=== PATIENT | male | born 1990 | race Caucasian/White ===

== ENCOUNTER 2019-09-19 06:17 | Day surgery (SDC) | payer MEDICAID, SELFPAY ==
[~2019-09-19] VITALS: Ht 180.3 cm; Wt 78.0 kg
[2019-09-19] MEDS ORDERED: ONDANSETRON HCL 4 MG/2 ML VIAL IVP PRN (07:30)
[2019-09-19] MEDS ORDERED: HYDROmorphone 1 MG INJ. 1 MG/ML AMPUL IVP PRN (07:30)
[2019-09-19] MEDS ORDERED: fentaNYL CITRATE/PF 100 MCG/2 ML AMP IVP PRN (07:30)
[2019-09-19] MEDS ORDERED: fentaNYL CITRATE/PF 100 MCG/2 ML AMP ONE (11:14)
[2019-09-19 12:09] VITALS: BP_SYST 146
[2019-09-19] MEDS ORDERED: HYDROcodone/ACETAMIN 5-325 MG TAB (NORCO/ VICODIN) PO ONE (12:45)
[2019-09-19] MEDS ORDERED: HYDROcodone/ACETAMIN 5-325 MG TAB (NORCO/ VICODIN) ONE (12:46)
== END 2019-09-19 14:50 | disposition home or self-care (01) ==
LOC: SMU 06:17 → SDS 06:17
PROVIDERS: ATTEND Otolaryngology
DX: J34.2 Deviated nasal septum (principal); J32.4 Chronic pansinusitis; K21.9 Gastro-esophageal reflux disease without esophagitis; R09.82 Postnasal drip
CPT/HCPCS: 30140; 30520; 31255; 31256; 31297; 87070; 87075; 87101; 87186; 88305; 88311; C1726; J3010; U0002

== ENCOUNTER 2019-09-24 15:48 | Day surgery (SDC) | payer MEDICAID, SELFPAY ==
[~2019-09-24] VITALS: Ht 180.3 cm; Wt 75.7 kg
[~2019-09-24 15:48] MED LIST: DEXAMETHASONE SOD PHOSPHATE 4 MG/ML VIAL IVP ONE; EPINEPHrine 1 MG/ML AMP IM ONE; LIDOCAINE/EPI 1% 1:100000 20 ML VIAL INJ ONE; LR 1,000 ML IV.SOLN IV ONE; MEPERIDINE HCL/PF 100 MG/ML AMP IM ONE; MIDAZOLAM HCL 5 MG/5 ML VIAL IVP ONE; NS IRRIG SOLN 1000 ML IR ONE; ONDANSETRON HCL 4 MG/2 ML VIAL IVP ONE; OXYMETAZOLINE HCL 0.05% NASAL SPRAY NS ONE; PROPOFOL 200MG/ 20ML VIAL (DIPRIVAN) IV ONE; SEVOFLURANE 15 MIN GAS INH ONE; SUCCINYLCHOLINE CHLORIDE 20 MG/ML(QUELICIN) IVP ONE; fentaNYL CITRATE/PF 100 MCG/2 ML AMP IVP ONE
[2019-09-24] MEDS ORDERED: LR 1,000 ML IV SCH (16:26)
[2019-09-24] MEDS ORDERED: MEPERIDINE HCL/PF 25 MG/ML DISP.SYRIN IVP PRN (16:30)
[2019-09-24] MEDS ORDERED: ONDANSETRON HCL 4 MG/2 ML VIAL IVP PRN (16:30)
[2019-09-24 17:34] LABS: BASOPHILS % (AUTO) 0.3 % (0.0-2.0); EOSINOPHILS % (AUTO) 0.2 % (0.0-4.0); HEMATOCRIT 31.6 % (36-54); HEMOGLOBIN 10.7 g/dL (14.0-18.0); LYMPHOCYTES # (AUTO) 1.1 K/uL (1.0-5.5); LYMPHOCYTES % (AUTO) 9.6 % (20.5-51.5); MEAN CORPUSCULAR HEMOGLOBIN 30 pg (27-31); MEAN CORPUSCULAR HGB CONC 34 % (32-36); MEAN CORPUSCULAR VOLUME 90 fL (79.0-98.0); MONOCYTES # (AUTO) 0.7 K/uL (0.0-1.0); MONOCYTES % (AUTO) 6.5 % (1.7-9.3); NEUTROPHILS # (AUTO) 9.1 K/uL (1.8-7.7); NEUTROPHILS % (AUTO) 83.4 % (40.0-70.0); PLATELET COUNT (AUTO) 230 K/uL (130-430); RED BLOOD CELL COUNT(AUTO) 3.53 MIL/uL (4.2-6.2); RED CELL DISTRIBUTION WIDTH 13.4 % (9.0-15.0)
[2019-09-24 17:51] LABS: CALCIUM 8.7 mg/dL (8.4-11.0); CREATININE 0.86 mg/dL (0.55-1.30); POTASSIUM 4.5 mmol/L (3.5-5.1)
[2019-09-24] MEDS: HYDROmorphone 1 MG INJ. 1 MG/ML AMPUL IVP PRN ×2 (20:18→20:28)
[2019-09-24] MEDS ORDERED: LABETALOL 100 MG/ 20ML VIAL IVP ONE ×2 (20:30→21:30)
[2019-09-24] MEDS ORDERED: HYDROmorphone 1 MG INJ. 1 MG/ML AMPUL ONE (20:31)
[2019-09-24] MEDS ORDERED: LABETALOL 100 MG/ 20ML VIAL ONE (20:45)
[2019-09-24 21:00] VITALS: BP_SYST 143
== END 2019-09-24 23:46 | disposition home or self-care (01) ==
LOC: SDS 15:48 → SMU 16:21 → SDS 23:46
PROVIDERS: ATTEND Otolaryngology
DX: R04.0 Epistaxis (principal); J95.830 Postprocedural hemorrhage of a respiratory system organ or structure following a respiratory system procedure
CPT/HCPCS: 31238; 36415; 80048; 85025; A4649; J0171; J0330; J1100; J1170; J2175; J2250; J2405; J2704; J3010; J3490; J7120

== ENCOUNTER 2019-09-25 05:46 | Emergency (ER) | payer MEDICAID ==
[~2019-09-25] VITALS: Ht 180.3 cm; Wt 75.7 kg
[2019-09-25 05:55] VITALS: BP_SYST 142
[2019-09-25] MEDS ORDERED: NACL 0.9% 1,000 ML IV ONE (06:10)
[2019-09-25 06:51] LABS: BASOPHILS % (AUTO) 0.1 % (0.0-2.0); HEMOGLOBIN 9.4 g/dL (14.0-18.0); LYMPHOCYTES # (AUTO) 1.1 K/uL (1.0-5.5); MEAN CORPUSCULAR HEMOGLOBIN 30 pg (27-31); MEAN CORPUSCULAR HGB CONC 34 % (32-36); MEAN CORPUSCULAR VOLUME 90 fL (79.0-98.0); MONOCYTES # (AUTO) 1.4 K/uL (0.0-1.0); MONOCYTES % (AUTO) 11.1 % (1.7-9.3); NEUTROPHILS % (AUTO) 79.8 % (40.0-70.0); PLATELET COUNT (AUTO) 246 K/uL (130-430); RED BLOOD CELL COUNT(AUTO) 3.12 MIL/uL (4.2-6.2); RED CELL DISTRIBUTION WIDTH 13.5 % (9.0-15.0); WHITE BLOOD COUNT (AUTO) 12.5 K/uL (4.8-10.8)
[2019-09-25 07:09] LABS: CALCIUM 8.6 mg/dL (8.4-11.0); CREATININE 0.97 mg/dL (0.55-1.30)
[2019-09-25 07:16] LABS: ALBUMIN 3.6 g/dL (3.4-4.8); TOTAL BILIRUBIN 0.3 mg/dL (0.0-1.0)
[2019-09-25 08:35] LABS: INR 1.1 (0.80-1.20); PROTHROMBIN TIME 11.1 SECS (9.5-12.5)
[2019-09-25 10:41] VITALS: BP_SYST 115
== END 2019-09-25 10:41 | disposition home or self-care (01) ==
LOC: SED 05:46
DX: D64.9 Anemia, unspecified (principal); R55 Syncope and collapse; R04.0 Epistaxis
CPT/HCPCS: 36415; 80053; 85025; 85610; 85730; 96360; 99283; J7030